=== PATIENT | male | born 1970 | race Caucasian/White ===

== ENCOUNTER 2017-02-27 11:10 | Observation (INO) | payer OTHER ==
[~2017-02-27] VITALS: Ht 177.8 cm; Wt 77.1 kg
[2017-02-27 11:36] LABS: RED BLOOD COUNT 5.47 M/UL (4.20-5.50); WHITE BLOOD COUNT 10.4 K/UL (4.5-11.0)
[2017-02-27 12:08] LABS: BUN/CREATININE RATIO 13 (0-10)
[2017-02-27] MEDS ORDERED: FISH OIL 1,0001 EAC1 PO (23:09)
[2017-02-27] MEDS ORDERED: PRAVASTATIN SOD40 MG PO (23:10)
[2017-02-27] MEDS ORDERED: VITAMIN B12-FO1 EACH PO (23:11)
[2017-02-27] MEDS ORDERED: METOPROLOL TART50 MG PO (23:12)
[2017-02-27] MEDS ORDERED: VITAMIN D32000 UNIT PO (23:13)
[2017-02-28 05:26] LABS: RED BLOOD COUNT 5.43 M/UL (4.20-5.50); WHITE BLOOD COUNT 10.4 K/UL (4.5-11.0)
[2017-02-28 05:46] LABS: BUN/CREATININE RATIO 16 (0-10)
[2017-02-28] MEDS ORDERED: TOPROL XL25 MG PO (19:02)
== END 2017-02-28 19:18 | disposition home or self-care (01) ==
LOC: ER1 11:10 → ZEROF 12:25 → MED SURG 4 21:37
PROVIDERS: Emergency Medicine; ADMIT Emergency Medicine
DX: R07.89 Other chest pain (principal); I25.10 Atherosclerotic heart disease of native coronary artery without angina pectoris; I10 Essential (primary) hypertension; E78.5 Hyperlipidemia, unspecified; F17.210 Nicotine dependence, cigarettes, uncomplicated; E78.6 Lipoprotein deficiency; Z98.61 Coronary angioplasty status; Z79.82 Long term (current) use of aspirin; Z79.899 Other long term (current) drug therapy; Z88.8 Allergy status to other drugs, medicaments and biological substances
CPT/HCPCS: ECHO; 36415; 71010; 78452; 80048; 80053; 80061; 82550; 82553; 83735; 83874; 84484; 85025; 93005; 93017; 93306; 99285; A9502; G0378

== ENCOUNTER 2017-03-02 08:59 | Emergency (ER) | payer OTHER ==
[~2017-03-02 08:59] MED LIST: FISH OIL 1,0001 EAC1 PO; METOPROLOL TART50 MG PO; PRAVASTATIN SOD40 MG PO; TOPROL XL25 MG PO; VITAMIN B12-FO1 EACH PO; VITAMIN D32000 UNIT PO
[2017-03-02 10:13] LABS: HEMOGLOBIN 15.3 gm/dl (14.0-17.5); RED BLOOD COUNT 5.26 M/UL (4.20-5.50); WHITE BLOOD COUNT 7.8 K/UL (4.5-11.0)
[2017-03-02 10:49] LABS: BUN/CREATININE RATIO 14 (0-10)
== END 2017-03-02 14:40 | disposition home or self-care (01) ==
LOC: ER1 08:59
PROVIDERS: Emergency Medicine
DX: R07.89 Other chest pain (principal); I10 Essential (primary) hypertension; E78.5 Hyperlipidemia, unspecified; I25.10 Atherosclerotic heart disease of native coronary artery without angina pectoris; F17.200 Nicotine dependence, unspecified, uncomplicated; Z95.5 Presence of coronary angioplasty implant and graft; Z88.6 Allergy status to analgesic agent; Z79.899 Other long term (current) drug therapy
CPT/HCPCS: 36415; 71010; 80053; 82550; 82553; 83874; 84484; 85025; 93005; 99285